=== PATIENT | female | born 1975 | race Caucasian/White ===

== ENCOUNTER → 2016-10-14 | Outpatient (CLI) | payer BC ==
[2016-10-14 10:03] LABS: CHOLESTEROL/HDL RATIO 4.6; THYROID STIMULATING HORMONE 1.22 uIu/ml (0.300-4.500)
== END | disposition home or self-care (01) ==
LOC: C.LAB1850 08:14
PROVIDERS: ATTEND Internal Medicine
DX: E03.9 Hypothyroidism, unspecified (principal)

== ENCOUNTER → 2017-08-04 | Outpatient (CLI) | payer BC ==
[2017-08-04 10:57] LABS: CHOLESTEROL/HDL RATIO 4.9; THYROID STIMULATING HORMONE 1.9 uIu/ml (0.300-4.500)
== END | disposition home or self-care (01) ==
LOC: C.LAB1850 09:37
PROVIDERS: ATTEND Internal Medicine
DX: E03.9 Hypothyroidism, unspecified (principal); E78.00 Pure hypercholesterolemia, unspecified

== ENCOUNTER → 2018-04-06 | Outpatient (CLI) | payer BC ==
[2018-04-06 10:03] LABS: BLOOD UREA NITROGEN 16 mg/dl (7-18); CALCIUM 8.5 mg/dl (8.5-10.1); CARBON DIOXIDE 26 mmol/L (21-32); CHOLESTEROL 207 mg/dl (0-200); CREATININE 0.93 mg/dl (0.60-1.20); GLUCOSE 86 mg/dl (70-99); LDL CHOLESTEROL CALCULATED 126 mg/dl; SODIUM 138 mmol/L (136-145)
== END | disposition home or self-care (01) ==
LOC: C.LAB1850 08:56
PROVIDERS: ATTEND Internal Medicine
DX: E78.00 Pure hypercholesterolemia, unspecified (principal); E03.9 Hypothyroidism, unspecified; G43.909 Migraine, unspecified, not intractable, without status migrainosus

== ENCOUNTER 2021-04-22 08:58 | Observation (INO) ==
[2021-04-22] MEDS ORDERED: fentaNYL citrate 100 MCG/2 ML VIAL IV STA ×2 (10:32→12:33)
[2021-04-22 10:43] LABS: Basophils # (auto) 0.06 K/uL (0-0.2); Basophils % (auto) 0.4 %; Eosinophils # (auto) 0.18 K/uL (0-0.5); Eosinophils % (auto) 1.1 %; Hematocrit (blood only) 40.3 % (37-47); Hemoglobin 13.8 g/dL (12.0-16.0); Immature Granulocytes # (auto) 0.07 K/uL (0.00-0.02); Immature Granulocytes % (auto) 0.4 %; Lymphocytes # (auto) 1.98 K/uL (1.2-3.4); Lymphocytes % (auto) 11.7 %; Mean Corpuscular Hemoglobin 31.8 pg (25-34); Mean Corpuscular Hgb Conc 34.2 g/dL (32-36); Mean Corpuscular Volume 92.9 fL (80-100); Mean Platelet Volume 10.2 fL (7.4-10.4); Monocytes # (auto) 1.28 K/uL (0.11-0.59); Monocytes % (auto) 7.6 %; Neutrophils # (auto) 13.32 K/uL (1.4-6.5); Neutrophils % (auto) 78.8 %; Platelet Count 292 K/uL (130-400); RDW Coefficient of Variation 13.6 % (11.5-14.5); RDW Standard Deviation 46.5 fL (36.4-46.3); Red Blood Count 4.34 M/uL (4.2-5.4); White Blood Count 16.89 K/uL (4.8-10.8)
[2021-04-22 10:54] LABS: INR 0.9 (0.9-1.1); Prothrombin Time 9.6 Seconds (9.0-12.0)
[2021-04-22 10:59] LABS: Albumin Level 3.7 gm/dl (3.4-5.0); BUN Creatinine Ratio 21.6 (10-20); Blood Urea Nitrogen 21 mg/dl (7-18); Calcium 8.8 mg/dl (8.5-10.1); Carbon Dioxide 24 mmol/L (21-32); Chloride 108 mmol/L (98-107); Est GFR (African American) 82.2 ml/min; Est GFR (Non-African American) 70.9 ml/min; Glucose 118 mg/dl (70-99); Potassium 3.8 mmol/L (3.5-5.1); Sodium 139 mmol/L (136-145)
[2021-04-22 11:02] LABS: Alanine Aminotransferase 48 U/L (12-78); Albumin Globulin Ratio 1.1 (0.9-2); Alkaline Phosphatase 43 U/L (45-117); Aspartate Aminotransferase 25 U/L (15-37); Bilirubin,Total 0.6 mg/dl (0.2-1); Creatine Kinase 85 U/L (26-192); Globulin 3.5 gm/dl (2.5-4.0); Total Protein 7.2 gm/dl (6.4-8.2)
[2021-04-22 11:06] LABS: Pregnancy Test, Serum Negative (Negative)
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
[2021-04-22] MEDS ORDERED: KETOROLAC TROMETHAMINE 15 MG/ML VIAL IV ONE (12:33)
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
[2021-04-22] MEDS ORDERED: ACETAMINOPHEN 500 MG TAB PO PRN (15:40)
[2021-04-22] MEDS ORDERED: ALBUTEROL HFA 8 GM INHALER INH PRN (16:55)
[2021-04-22] MEDS ORDERED: MAGNESIUM HYDROXIDE SUSP 30 ML UDC PO PRN (16:55)
[2021-04-22] MEDS ORDERED: POLYETHYLENE (MIRALAX) 17 GM PACK PO PRN (16:55)
[2021-04-22] MEDS ORDERED: ALUMINUM/MAGNESIUM SUSP 30 ML UDC PO PRN (16:55)
[2021-04-22] MEDS ORDERED: ONDANSETRON INJ 2 MG/ML 2 ML VIAL IV PRN (16:55)
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
[2021-04-22] MEDS: PATIENT'S HEIGHT AND/OR WEIGHT NEEDED SCH ×2 (17:20→17:32)
[2021-04-22] MEDS: HYDROmorphone INJ 0.5 MG/0.5 ML SYR IV PRN (21:47)
[2021-04-23 02:00] LABS: Appearance Urine Clear (Clear); Bilirubin Urine Negative (Negative); Blood Urine Negative (Negative); Color Urine Dark Yellow; Glucose Urine UA Negative (Negative); Ketones Urine Negative (Negative); Leukocyte Esterase Urine Negative (Negative); Nitrite Urine Negative (Negative); Protein Urine Negative (Negative); Specific Gravity Urine 1.028 (1.000-1.030); Urobilinogen Urine Negative (Negative)
--- NOTE | 2021-04-23 05:55 | Electrocardiogram Report ---
Test Reason : Blood Pressure : / mmHG Vent. Rate : 088 BPM Atrial Rate : 088 BPM P-R Int : 136 ms QRS Dur : 082 ms QT Int : 364 ms P-R-T Axes : 034 029 023 degrees QTc Int : 440 ms Normal sinus rhythm Nonspecific T wave abnormality Abnormal ECG No previous ECGs available Confirmed by Eh Tejeda ([id number]) on 04/23/2021 5:55:26 AM Referred By: REFERRED SELF Confirmed By:Eh Tejeda
[2021-04-23] MEDS: LEVOTHYROXINE SODIUM 100 MCG TABLET PO SCH (05:59)
[2021-04-23 06:34] LABS: Basophils # (auto) 0.03 K/uL (0-0.2); Basophils % (auto) 0.6 %; Eosinophils # (auto) 0.18 K/uL (0-0.5); Eosinophils % (auto) 3.4 %; Hematocrit (blood only) 32.1 % (37-47); Hemoglobin 10.5 g/dL (12.0-16.0); Immature Granulocytes # (auto) 0.02 K/uL (0.00-0.02); Immature Granulocytes % (auto) 0.4 %; Lymphocytes # (auto) 1.93 K/uL (1.2-3.4); Lymphocytes % (auto) 36.5 %; Mean Corpuscular Hemoglobin 30.6 pg (25-34); Mean Corpuscular Hgb Conc 32.7 g/dL (32-36); Mean Corpuscular Volume 93.6 fL (80-100); Mean Platelet Volume 10.5 fL (7.4-10.4); Monocytes # (auto) 0.74 K/uL (0.11-0.59); Neutrophils # (auto) 2.39 K/uL (1.4-6.5); Neutrophils % (auto) 45.1 %; Platelet Count 224 K/uL (130-400); RDW Coefficient of Variation 13.8 % (11.5-14.5); RDW Standard Deviation 47.1 fL (36.4-46.3); Red Blood Count 3.43 M/uL (4.2-5.4); White Blood Count 5.29 K/uL (4.8-10.8)
[2021-04-23 07:05] LABS: Calcium 8.2 mg/dl (8.5-10.1); Creatinine Clr Calc Pharmacy 121.8 ml/min; Est GFR (African American) 114.5 ml/min; Est GFR (Non-African American) 98.8 ml/min; Magnesium 2.1 mg/dl (1.8-2.4); Potassium 3.7 mmol/L (3.5-5.1)
[2021-04-23 07:13] LABS: Albumin Globulin Ratio 1.1 (0.9-2); Bilirubin,Total 0.6 mg/dl (0.2-1); Globulin 2.8 gm/dl (2.5-4.0); Phosphorus 3.6 mg/dl (2.5-4.9); Total Protein 5.8 gm/dl (6.4-8.2)
[2021-04-23] MEDS: VITAMIN B COMPLEX TAB PO SCH (07:46)
[2021-04-23] MEDS: EZETIMIBE 10 MG TABLET PO SCH (07:46)
[2021-04-23] MEDS: FLUTICASONE/VILANTEROL 100/25MCG 14 PUFFS/INHALER INH SCH (07:46)
--- NOTE | 2021-04-23 08:13 | Orthopedic Progress Note ---
Date of Service April 23, 2021 Assessment & Plan (1) Multiple leg contusions: Plan: Patient was seen in her room this morning in conjunction with Dr. Jamison. He did examine the patient as well. She is doing better than yesterday. She has no bony issues on film. Patient may be out of bed and weight-bear as tolerated with a walker. She will have PT this morning. Operative intervention will not be necessary, and she may eat today. We will see how she does with therapy before deciding on discharge today. Continue with ice and elevation. Admission and Anticipated Discharge Date Admission Date: April 22, 2021 Subjective Patient is seen in her room this morning. She was sleeping upon initial evaluation. Awakens easily. Patient states her legs are still sore. She has not been out of bed yet. She notes the sensation in her left leg has improved, but is not back to normal. Denies any chest pain, shortness of breath, nausea, vomiting, or abdominal pain. No new complaints. Review of Systems Review of Systems: Unchanged from yesterday. Physical Exam Physical Exam: General: Well-developed, well-nourished, morbidly obese middle- aged female, in no acute distress. Laying in bed. Alert and oriented. Skin: Warm and dry with good turgor. No rashes. Small abrasion present on the left lower leg. No active bleeding. No significant ecchymosis. No appreciable edema. Musculoskeletal: Patient has intact motor function of the right lower extremity. Able to easily dorsiflex and plantarflex her toes and ankle. She is able to set her quad and perform a straight leg raise. Left leg evaluation reveals intact motor function to the toes and ankle for dorsiflexion and plantarflexion. She is unable to set her quad and perform a straight leg raise secondary to discomfort. She is still quite tender with palpation over the left lower leg, especially medially. Compartments are soft with palpation. No increase in lower leg pain with passive dorsiflexion and plantarflexion of the foot. Neurologic: Gross sensation is intact across all aspects of the right leg by soft touch. She complains of altered sensation over the medial aspect of her left lower leg as well as around a 7 inch portion of the lateral aspect of the left lower leg. Normal sensation at her lateral ankle and lateral fibular head. Peripheral pulses are 1+ and symmetric in both lower legs. Capillary refill is equal for both feet. Results & Data ([facility]) Vital Signs (Past 12 Hours) Vital Signs Temp Pulse Resp BP BP Pulse Ox 04/23/21 07:11 36.9 C 70 16 114/72 99 04/22/21 22:44 36.9 C 70 18 116/70 97 Laboratory Results Labs this morning show WBCs five-point, H&H of 10.5 and 32.1, sodium 140, potassium 3.7, chloride 110, BUN 17, creatinine 0.73. Glucose 87, magnesium 2.1, albumin 3.0. Total CK normal at 144. Urine is unremarkable. (1) Multiple leg contusions Encounter type: initial encounter Laterality: unspecified laterality Qualified Code(s): S80.10XA - Contusion of unspecified lower leg, initial encounter
[2021-04-23 13:22] LABS: Hematocrit (blood only) 34.7 % (37-47); Hemoglobin 11.6 g/dL (12.0-16.0); Mean Corpuscular Hemoglobin 31.1 pg (25-34); Mean Corpuscular Hgb Conc 33.4 g/dL (32-36); Mean Platelet Volume 9.9 fL (7.4-10.4); Platelet Count 238 K/uL (130-400); RDW Coefficient of Variation 13.7 % (11.5-14.5); RDW Standard Deviation 47.4 fL (36.4-46.3); Red Blood Count 3.73 M/uL (4.2-5.4); White Blood Count 5.84 K/uL (4.8-10.8)
[2021-04-23] MEDS: HYDROmorphone INJ 0.5 MG/0.5 ML SYR IV PRN ×2 (14:04→21:00)
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
[2021-04-23] MEDS: ACETAMINOPHEN 500 MG TAB PO SCH (21:00)
[2021-04-23] MEDS ORDERED: ACETAMINOPHEN 500 MG TAB PO SCH (22:00)
--- NOTE | 2021-04-23 22:06 | Communication Note ---
Date of Service: April 23, 2021 Called by bedside nursing, as patient stating that since approximately 1700 earlier this evening she has continued to have pain with ambulation and tender ness/numbness over her left medial ankle. Over this time nursing has consistently been able to detect pulses with Doppler. She is only having tenderness to deep palpation at this time. Ordered repeat CK given recent potential for crush injury to bilateral lower extremities, with admission for concern of development of compartment syndrome. Creatinine kinase previously not elevated. Repeat CK of 105. Retimed patient's pain regimen to better allow for cross coverage between breakthrough and oral medications. Continue to monitor for potential concerns/development of compartment syndrome. Resident Activity Tracking Resident Involvement: Resident Care Provided Care Provided: Adult [facility]
[2021-04-24] MEDS: HYDROmorphone INJ 0.5 MG/0.5 ML SYR IV PRN (03:27)
[2021-04-24] MEDS: LEVOTHYROXINE SODIUM 100 MCG TABLET PO SCH (06:33)
[2021-04-24] MEDS: ACETAMINOPHEN 500 MG TAB PO SCH ×2 (06:33→13:03)
[2021-04-24] MEDS: FLUTICASONE/VILANTEROL 100/25MCG 14 PUFFS/INHALER INH SCH (07:56)
[2021-04-24] MEDS: EZETIMIBE 10 MG TABLET PO SCH (08:02)
[2021-04-24] MEDS: VITAMIN B COMPLEX TAB PO SCH (08:02)
[2021-04-24] MEDS: oxyCODONE HCL IR 5 MG TAB (IMMEDIATE RELEASE) PO PRN ×2 (13:03→17:46)
[2021-04-24] MEDS ORDERED: DOCUSATE SODIUM 100 MG CAP PO ONE (13:41)
[2021-04-24] MEDS ORDERED: KETOROLAC TROMETHAMINE 15 MG/ML VIAL IV ONE (16:58)
[2021-04-24] MEDS ORDERED: ONDANSETRON 4 MG OD TAB PO STA (17:57)
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
== END 2021-04-24 18:33 | disposition home or self-care (01) | DRG 605 ==
LOC: 3W 08:58 → ED 08:58 → SUATTDRO 15:40 → 3W 16:44